=== PATIENT | male | born 1960 | race Caucasian/White ===

== ENCOUNTER → 2017-08-21 | Outpatient (CLI) | payer BC | LOC: GMAH 11:06 | PROVIDERS: ATTEND Family Medicine | DX: R03.0 Elevated blood-pressure reading, without diagnosis of hypertension (principal) ==

== ENCOUNTER 2019-01-22 08:25 | Emergency (ER) | payer BC ==
[2019-01-22] MEDS ORDERED: cloNIDine HCL 0.1 MG TAB PO ONE (08:45)
[2019-01-22 08:49] VITALS: TEMP 98.3
[2019-01-22] MEDS ORDERED: amLODIPine BESYLATE 5 MG TAB PO ONE (08:51)
--- NOTE | 2019-01-22 08:53 | ED.PDOC ---
History of Present Illness - General Chief Complaint: Cardiovascular Problem Stated Complaint: Elevated BP Time Seen by Provider: 01/22/19 08:44 Source: patient, RN notes reviewed, Vital Signs reviewed Exam Limitations: no limitations - History of Present Illness Timing/Duration: 1 week Severity: severe Location: other - no pain Activities at Onset: none Prior Chest Pain/Cardiac Workup: other - none Improving Factors: medication - antihypertensives Worsening Factors: nothing Nitro Today/Relief: no nitro taken today Aspirin Treatment Today: no aspirin today Associated Symptoms: denies symptoms Allergies/Adverse Reactions: Allergies Gemfibrozil [From Lopid] Allergy (Verified 01/22/19 08:45) Rash Review of Systems - Review of Systems Constitutional: States: no symptoms reported EENTM: States: no symptoms reported Respiratory: States: no symptoms reported Cardiology: States: no symptoms reported Gastrointestinal/Abdominal: States: no symptoms reported Genitourinary: States: no symptoms reported Musculoskeletal: States: no symptoms reported Skin: States: no symptoms reported Neurological: States: no symptoms reported. Denies: headache, numbness, paresthesia, weakness Endocrine: States: no symptoms reported Hematologic/Lymphatic: States: no symptoms reported Past Medical History (General) - Patient Medical History Hx Stroke: No Hx Congestive Heart Failure: No Hx Hypertension: Yes Hx Diabetes: Yes - Vaccination History Hx Influenza Vaccination: No Hx Pneumococcal Vaccination: No - Social History Hx Tobacco Use: No Hx Alcohol Use: No Family Medical History - Family History Father Living Status: Hx Family Hypertension: Yes Hx Cardiac Disease: Yes Hx Family Diabetes: Yes Physical Exam - Physical Exam General Appearance: Alert, Comfortable, No apparent distress Eyes, Ears, Nose, Throat Exam: normal ENT inspection Neck: non-tender, full range of motion Respiratory: chest non-tender, lungs clear Cardiovascular/Chest: regular rate, rhythm, other - 1+ edema bilaterally Gastrointestinal/Abdominal: non tender, soft Extremity: normal range of motion Neurologic: molding associate II-XII nml as tested, no motor/sensory deficits, alert, normal mood/affect, oriented x 3, abnormal cerebellar tests, abnormal molding associate II-XII Skin Exam: normal color Progress - Progress Progress: 01/22/19 09:48 Patient presented for elevated BP without neuro symptoms, chest pain, SOB. Neuro exam unremarkable. Discussed CT head and very low likelihood of this being worthwhile to evaluate for intracranial hemorrhage given lack of symptoms, and patient agrees to defer. EKG with LVH but no other ST changes. Cr 1.34 and anemic. Patient was given Clonidine 0.2 mg and Amlodipine 10mg. I advised him to continue Lisinopril 20mg bid, increase Chlorthalidone to 50mg, and increase Amlodipine from 5 to 10mg qd. - EKG/XRAY/CT EKG: Sinus, LVH Departure - Departure Clinical Impression: Hypertensive urgency Time of Disposition: 09:47 Disposition: Discharge to Home or Self Care Condition: Fair Departure Forms: ED Discharge - Pt. Copy, Patient Portal Self Enrollment Instructions: DI for Chest Pain Activity: increase activity as tolerated Referrals: Mario Schroeder MD [Primary Care Provider] - 1-2 Days Comments: For elevated BP.
[2019-01-22 09:57] VITALS: BP 157/85; O2SAT 97
== END 2019-01-22 09:56 | disposition home or self-care (01) ==
LOC: ER 08:25
DX: I16.0 Hypertensive urgency (principal); I51.7 Cardiomegaly; E11.9 Type 2 diabetes mellitus without complications; Z88.8 Allergy status to other drugs, medicaments and biological substances

== ENCOUNTER → 2020-06-14 | Outpatient (CLI) | payer BC | LOC: GMA MATASK 11:46 | PROVIDERS: ATTEND Family Medicine | DX: I10 Essential (primary) hypertension (principal); E11.9 Type 2 diabetes mellitus without complications; Z12.5 Encounter for screening for malignant neoplasm of prostate ==